=== PATIENT | male | born 1985 | race Caucasian/White ===

== ENCOUNTER 2018-11-10 23:13 | Emergency (ER) | payer SELFPAY ==
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
[2018-11-11 00:09] VITALS: BP 134/84; TEMP 97.1; O2SAT 97
--- NOTE | 2018-11-11 00:13 | RAD ---
EXAM: Tibia/Fibula,Right CLINICAL INDICATION: 33-year-old male with swollen RIGHT lower leg. TECHNIQUE: Three views RIGHT ankle were obtained in AP, lateral and oblique projections. COMPARISON: None. FINDINGS: There is no fracture or dislocation. The joint spaces are preserved. No soft tissue abnormalities are seen. Degenerative changes of the knee. IMPRESSION: No acute radiographic abnormality. Electronically signed by: Chrissy Wolff MD 11/11/2018 12:11 AM CDT
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
[2018-11-11] MEDS ORDERED: ceFAZolin SODIUM 2 GRAMS PREMI 2 GM in PREMIX BAG 1 BAG IVPB ONE (00:25)
[2018-11-11] MEDS ORDERED: SODIUM CHLORIDE 0.9% 1000ML 1,000 ML IVS ONE (00:25)
[2018-11-11] MEDS ORDERED: LIDOCAINE 1% 10 ML VIAL INJ ONE (00:30)
[2018-11-11] MEDS ORDERED: CHLORHEXIDINE GLUCONATE 4 % 15 ML UD TOP ONE (00:31)
[2018-11-11] MEDS ORDERED: CLINDAMYCIN IV 900MG 900 MG in PREMIX BAG 1 BAG IVPB ONE (00:43)
[2018-11-11] MEDS ORDERED: CLINDAMYCIN IV 900MG 50 ML IVPB ONE (00:44)
[2018-11-11] MEDS ORDERED: SILVER SULFADIAZINE 1 % 25 GM TUBE TOP ONE (02:04)
== END 2018-11-11 02:15 | disposition home or self-care (01) ==
LOC: ER 23:13
DX: S09.90XA Unspecified injury of head, initial encounter (principal); S01.81XA Laceration without foreign body of other part of head, initial encounter; S16.1XXA Strain of muscle, fascia and tendon at neck level, initial encounter; S80.811A Abrasion, right lower leg, initial encounter; F10.920 Alcohol use, unspecified with intoxication, uncomplicated; Y04.0XXA Assault by unarmed brawl or fight, initial encounter; Y92.9 Unspecified place or not applicable
CPT/HCPCS: 70450; 72125; 73590; 80053; 80307; 80320; 81001; 85025; J3490; J7030